=== PATIENT | male | born 1935 | race Caucasian/White ===

== ENCOUNTER 2016-05-18 06:16 | Outpatient (CLI) | payer MEDICARE, OTHER | END 2016-05-18 06:17 | disposition home or self-care (01) | DX: N18.3 Chronic kidney disease, stage 3 (moderate) (principal); E11.9 Type 2 diabetes mellitus without complications; C91.10 Chronic lymphocytic leukemia of B-cell type not having achieved remission ==

== ENCOUNTER 2016-06-08 08:20 | Outpatient (CLI) | payer MEDICARE, OTHER | END 2016-06-08 08:21 | disposition home or self-care (01) | DX: N18.3 Chronic kidney disease, stage 3 (moderate) (principal) ==

== ENCOUNTER 2016-06-24 10:05 | Emergency (ER) | payer MEDICARE, OTHER | END 2016-06-24 13:35 | disposition home or self-care (01) | DX: R07.2 Precordial pain (principal); E03.9 Hypothyroidism, unspecified; I10 Essential (primary) hypertension; E78.00 Pure hypercholesterolemia, unspecified; E11.9 Type 2 diabetes mellitus without complications; Z79.4 Long term (current) use of insulin; M19.90 Unspecified osteoarthritis, unspecified site; Z86.73 Personal history of transient ischemic attack (TIA), and cerebral infarction without residual deficits; Z79.82 Long term (current) use of aspirin ==

== ENCOUNTER 2016-07-11 15:28 | Outpatient (CLI) | payer MEDICARE, OTHER | END 2016-07-11 15:29 | disposition home or self-care (01) | DX: N17.9 Acute kidney failure, unspecified (principal) ==

== ENCOUNTER 2017-02-19 20:23 | Outpatient (CLI) | payer MEDICARE, OTHER ==
[2017-02-19 19:38] LABS: CHOL/HDL RATIO 3.6 (<5.0); CHOLESTEROL 238 mg/dL; HDL CHOLESTEROL 66 mg/dL; LDL/HDL RATIO 2.3 (<3.6); TRIGLYCERIDES 87 mg/dL; VLDL CHOLESTEROL 17 mg/dL
[2017-02-19 20:05] LABS: HEMOGLOBIN A1C 0.98 g/dL
== END 2017-02-19 20:24 | disposition home or self-care (01) ==
LOC: LAB.WCP 20:23
PROVIDERS: ATTEND Family Medicine
DX: E11.9 Type 2 diabetes mellitus without complications (principal)
CPT/HCPCS: 36415; 80061; 83036